=== PATIENT | female | born 1940 | race Two or more races ===

== ENCOUNTER 2017-09-10 07:42 | Outpatient (CLI) | payer OTHER ==
[~2017-09-10 07:42] MED LIST: ATORVASTATIN CA40 MG PO; CLONAZEPAM0.5 MG PO; COUMADIN2 MG; DIGOXIN0.125 MG/2 PO; FUROSEMIDE40 MG PO; GRALISE300 MG; HYDROCHLOROTHIA25 MG PO; ISOSORBIDE DINI30 MG; LASIX20 MG PO; LISINOPRIL40 MG PO; LOSARTAN-HCTZ1 EAC1 PO; METOPROLOL SUCC50 MG PO; NABUMETONE500 MG PO; NEURONTIN300 MG; NIFE60TA3 PO; NO SABE NOMBRE; OMEPRAZOLE40 MG PO; TOPROL XL100 M1; TOPROL XL100 M1 PO; TOPROL XL50 M1 PO; VASOTEC20 MG PO; XARELTO20 MG PO
== END 2017-09-10 09:41 | disposition home or self-care (01) ==
LOC: NUCLEAR 07:42
DX: I25.10 Atherosclerotic heart disease of native coronary artery without angina pectoris (principal)
CPT/HCPCS: 78452; 93017; A9500; J0153